=== PATIENT | female | born 2000 ===

== ENCOUNTER 2021-09-30 19:54 | Emergency (ER) | payer SELFPAY ==
[2021-09-30] MEDS ORDERED: diphenhydrAMINE 50 MG/ML VIAL IV ONE (20:58)
[2021-09-30] MEDS ORDERED: METOCLOPRAMIDE 10 MG/2 ML INJ IV ONE (20:58)
[2021-09-30] MEDS ORDERED: SODIUM CHLORIDE 0.9% 1000 ML 1,000 ML IV ONE ×2 (21:00→22:45)
[2021-09-30 21:40] LABS: Alanine Aminotransferase 6 units/L (7-56); Albumin 3.9 g/dL (3.9-5); Blood Urea Nitrogen 12 mg/dL (7-17); Calcium 8.4 mg/dL (8.4-10.2); Hemolysis Index 45
[2021-09-30 21:41] LABS: BUN/Creatinine Ratio 24; Basophils % (Auto) 0.1 % (0.0-1.8); Eosinophils % (Auto) 0.2 % (0.0-4.3); Hematocrit 34.7 % (30.3-42.9); Hemoglobin 11.2 gm/dl (10.1-14.3); Lymphocytes # (Auto) 1.8 K/mm3 (1.2-5.4); Lymphocytes % (Auto) 22.6 % (13.4-35.0); Mean Corpuscular HGB Conc 32 % (30-34); Mean Corpuscular Volume 84 fl (79-97); Monocytes # (Auto) 0.4 K/mm3 (0.0-0.8); Monocytes % (Auto) 5.2 % (0.0-7.3); Platelet Count 199 K/mm3 (140-440); Red Blood Count 4.15 M/mm3 (3.65-5.03); Red Cell Distribution Width 13.5 % (13.2-15.2)
[2021-09-30] MEDS ORDERED: ACETAMINOPHEN 500 MG TAB PO ONE (22:45)
--- NOTE | 2021-09-30 22:52 | Emergency Department Report ---
ED General Adult HPI - General Chief complaint: Abdominal Pain Stated complaint: ABD PAIN PUI?: Yes Time Seen by Provider: 09/30/21 22:25 Source: patient, RN notes reviewed, old records reviewed Mode of arrival: Ambulatory Limitations: Language Barrier - History of Present Illness Initial comments: The patient was evaluated in the emergency department for symptoms described in the history of present illness. He/she was evaluated in the context of the global COVID-19 pandemic, which necessitated consideration that the patient might be at risk for infection with the virus that causes COVID-19. Institutional protocols and algorithms that pertain to the evaluation of patients at risk for COVID-19 are in a state of rapid change based on information released by regulatory bodies including the CDC and federal and state organizations. These policies and algorithms were followed during the patient's care in the emergency department. Please note that these policies, procedures and recommendations changed on a rapid basis. 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 The patient is referred to the emergency room from a local outpatient family practice office. History obtained from patient, using appropriate account executive on account executive phone, as well as her friend. The patient was found to be today, with a fundal height of 22 cm, and has also been taking contraceptives which belonged to her friend. She is not trying to get but she is having unprotected sex. She has a mild headache, no neck pain, no chest pain, bilateral lower quadrant abdominal pain for 1 month, denies dysuria. Prehospital documentation indicates that the patient has a urinalysis with leukocytosis of blood. The patient denies sore throat and loss of taste or smell. In the past few days, patient has had 1 positive COVID test (this past Monday), and a subsequent negative test the day after. The patient denies exacerbating or relieving factors. The patient does not currently have a local MEASURING CLERK -: Gradual, week(s) Location: abdomen Radiation: non-radiation Consistency: intermittent Improves with: none Worsens with: none - Related Data Previous Rx's Medication Instructions Recorded Last Taken Type Acetaminophen [Non-Aspirin Extra 500 mg PO Q6HR PRN #30 tablet 10/01/21 Unknown Rx Strength] Doxylamine Succinate/Vit B6 1 each PO QHS PRN #30 tablet. 10/01/21 Unknown Rx [Lisa Escalante 10-10 mg Tablet] Shana Root [Shana] 250 mg PO QID PRN #30 capsule 10/01/21 Unknown Rx Vit-Fe Fumar-FA [ 1 tab PO QDAY #30 tablet 10/01/21 Unknown Rx Vitamin] Allergies Allergy/AdvReac Type Severity Reaction Status Date / Time No Known Allergies Allergy Verified 09/30/21 20:51 ED Review of Systems ROS: Stated complaint: ABD PAIN Other details as noted in HPI Constitutional: denies: chills, fever ENT: denies: throat pain Respiratory: denies: cough Cardiovascular: denies: chest pain Gastrointestinal: abdominal pain. denies: nausea, vomiting Genitourinary: denies: dysuria Musculoskeletal: denies: back pain Neurological: headache. denies: weakness Psychiatric: anxiety ED Past Medical Hx - Past Medical History Previous Medical History?: No - Surgical History Past Surgical History?: No Additional Surgical History: C SECTION - Medications Home Medications: Home Medications Medication Instructions Recorded Confirmed Last Taken Type Acetaminophen [Non-Aspirin Extra 500 mg PO Q6HR PRN #30 tablet 10/01/21 Unknown Rx Strength] Doxylamine Succinate/Vit B6 1 each PO QHS PRN #30 tablet. 10/01/21 Unknown Rx [Lisa Escalante 10-10 mg Tablet] Shana Root [Shana] 250 mg PO QID PRN #30 capsule 10/01/21 Unknown Rx Vit-Fe Fumar-FA [ 1 tab PO QDAY #30 tablet 10/01/21 Unknown Rx Vitamin] ED Physical Exam - General Limitations: Language Barrier General appearance: alert, anxious - Head Head exam: Present: atraumatic, normocephalic - Eye Eye exam: Present: normal appearance, EOMI. Absent: nystagmus - ENT ENT exam: Present: normal exam, normal orophraynx, mucous membranes moist, normal external ear exam - Neck Neck exam: Present: normal inspection, full ROM. Absent: tenderness, meningismus - Respiratory Respiratory exam: Present: normal lung sounds bilaterally. Absent: respiratory distress, wheezes, rales, rhonchi, stridor, decreased breath sounds - Cardiovascular Cardiovascular Exam: Present: normal rhythm, tachycardia, normal heart sounds. Absent: bradycardia, irregular rhythm, systolic murmur, diastolic murmur, rubs, gallop - GI/Abdominal GI/Abdominal exam: Present: soft, tenderness (There is minimal right upper quadrant/superior umbilical tenderness. There is no right lower quadrant tenderness, rebound or guarding. There is negative Denney sign. There is a negative Rovsing sign), normal bowel sounds. Absent: distended, guarding, rebound, rigid, pulsatile mass - Extremities Exam Extremities exam: Present: normal inspection, full ROM, other (2+ pulses noted in the bilateral upper and lower extremities. There is no palpable cord. negative Homans sign. Muscular compartments are soft. The pelvis is stable.). Absent: calf tenderness - Back Exam Back exam: Present: normal inspection, full ROM. Absent: tenderness, CVA tenderness (R), paraspinal tenderness, vertebral tenderness - Neurological Exam Neurological exam: Present: alert, other (No facial droop. Tongue midline. Extraocular movements intact bilaterally. Facial sensation intact to light touch in V1, V2, V3 distribution bilaterally. 5 and a 5 strength in 4 extremities. Sensation intact to light touch in 4 extremities.) - Psychiatric Psychiatric exam: Present: anxious - Skin Skin exam: Present: warm, dry, intact, normal color. Absent: rash ED Course Vital Signs 09/30/21 10/01/21 20:47 01:12 Temperature 100.6 F H 97.7 F Pulse Rate 124 H 108 H Respiratory 22 20 Rate Blood Pressure 89/55 93/54 O2 Sat by Pulse 100 100 Oximetry - Reevaluation(s) Reevaluation #1: 09/30/21 22:53 Differential diagnosis, including but not limited to: Cholecystitis, pyeloneph ritis, insufficient care, urinary tract infection, COVID-19 Assessment and plan: 21-year-old female, who is not vaccinated against COVID-19, who had 1 positive test in the past week, 1 negative test in the past week, denies urinary symptoms, referred to the emergency room from an outpatient family Practice, found to be , in spite of taking oral contraceptives. Place patient on isolation. Start fluids and Tylenol. Have requested urine sample. Obtain appropriate ultrasounds. Reassess after initial data points. Saturating 100% on room air. Lung sounds are clear. I think pneumonia is unlikely 10/01/21 00:11 Patient resting comfortably. No active vomiting. Initial urinalysis is contaminated. Went back to patient and discussed need to obtain clean-catch urine sample. Discussed technique necessary to obtain clean-catch urine sample. Awaiting repeat urinalysis and diagnostic radiology. 10/01/21 01:51 Repeat clean-catch urinalysis is not consistent with infectious pathology. There may be a component of dehydration. The patient continues to rest comfortably in chat with her friend in in a relaxed manner. Tachycardia improving, patient has defervesced, patient approximately 20 weeks , therefore, tachycardia likely secondary to physiology of , as well as dehydration. Ultrasound essentially nonactionable for acute or emergent findings. This patient has been observed in this ER for hours without clinical decompensation. She will need to follow-up as soon as possible with an outpatient materials supervisor to initiate outpatient care. 10/01/21 02:36 Final reevaluation. Patient in no acute distress. Ultrasound findings reviewed and appreciated. No active vomiting. Extensively and thoroughly discussed significance of findings, and need to follow-up as an outpatient. Patient articulates understanding. All questions answered. ED Medical Decision Making - Lab Data Result diagrams: 09/30/21 21:06 09/30/21 21:06 Vital Signs 09/30/21 20:47 Temperature 100.6 F H Pulse Rate 124 H Respiratory 22 Rate Blood Pressure 89/55 O2 Sat by Pulse 100 Oximetry Lab Results 09/30/21 09/30/21 09/30/21 Range/Units 21:06 21:06 21:06 WBC 8.1 (4.5-11.0) K/mm3 RBC 4.15 (3.65-5.03) M/mm3 Hgb 11.2 (10.1-14.3) gm/dl Hct 34.7 (30.3-42.9) % MCV 84 (79-97) fl MCH 27 L (28-32) pg MCHC 32 (30-34) % RDW 13.5 (13.2-15.2) % Plt Count 199 (140-440) K/mm3 Lymph % (Auto) 22.6 (13.4-35.0) % [place] % (Auto) 5.2 (0.0-7.3) % Eos % (Auto) 0.2 (0.0-4.3) % Baso % (Auto) 0.1 (0.0-1.8) % Lymph # (Auto) 1.8 (1.2-5.4) K/mm3 [place] # (Auto) 0.4 (0.0-0.8) K/mm3 Eos # (Auto) 0.0 (0.0-0.4) K/mm3 Baso # (Auto) 0.0 (0.0-0.1) K/mm3 Seg Neutrophils % 71.9 H (40.0-70.0) % Seg Neutrophils # 5.8 (1.8-7.7) K/mm3 Sodium 138 (137-145) mmol/L Potassium 3.7 (3.6-5.0) mmol/L Chloride 104.0 (98-107) mmol/L Carbon Dioxide 19 L (22-30) mmol/L Anion Gap 19 mmol/L BUN 12 (7-17) mg/dL Creatinine 0.5 L (0.6-1.2) mg/dL Estimated GFR > 60 ml/min BUN/Creatinine Ratio 24 % Glucose 91 (65-100) mg/dL Calcium 8.4 (8.4-10.2) mg/dL Total Bilirubin 0.30 (0.1-1.2) mg/dL AST 15 (5-40) units/L ALT 6 L (7-56) units/L Alkaline Phosphatase 84 (35-129) units/L Total Protein 7.2 (6.3-8.2) g/dL Albumin 3.9 (3.9-5) g/dL Albumin/Globulin Ratio 1.2 % HCG, Quant 9841 H (0-4) mIU/mL Blood Type 09/30/21 Range/Units 21:06 WBC (4.5-11.0) K/mm3 RBC (3.65-5.03) M/mm3 Hgb (10.1-14.3) gm/dl Hct (30.3-42.9) % MCV (79-97) fl MCH (28-32) pg MCHC (30-34) % RDW (13.2-15.2) % Plt Count (140-440) K/mm3 Lymph % (Auto) (13.4-35.0) % [place] % (Auto) (0.0-7.3) % Eos % (Auto) (0.0-4.3) % Baso % (Auto) (0.0-1.8) % Lymph # (Auto) (1.2-5.4) K/mm3 [place] # (Auto) (0.0-0.8) K/mm3 Eos # (Auto) (0.0-0.4) K/mm3 Baso # (Auto) (0.0-0.1) K/mm3 Seg Neutrophils % (40.0-70.0) % Seg Neutrophils # (1.8-7.7) K/mm3 Sodium (137-145) mmol/L Potassium (3.6-5.0) mmol/L Chloride (98-107) mmol/L Carbon Dioxide (22-30) mmol/L Anion Gap mmol/L BUN (7-17) mg/dL Creatinine (0.6-1.2) mg/dL Estimated GFR ml/min BUN/Creatinine Ratio % Glucose (65-100) mg/dL Calcium (8.4-10.2) mg/dL Total Bilirubin (0.1-1.2) mg/dL AST (5-40) units/L ALT (7-56) units/L Alkaline Phosphatase (35-129) units/L Total Protein (6.3-8.2) g/dL Albumin (3.9-5) g/dL Albumin/Globulin Ratio % HCG, Quant (0-4) mIU/mL Blood Type O POSITIVE - Radiology Data Radiology results: report reviewed, image reviewed . LIMITED RUQ ABDOMINAL ULTRASOUND INDICATION: ruq pain, right flank pain. COMPARISON: No relevant prior imaging study available. FINDINGS: Pancreas: Visualized portions show no significant abnormality. Abdominal Aorta: Normal size. IVC: No significant abnormality. Liver: The liver measures 15.7 cm in length. No significant abnormality. Normal hepatopedal blood flow in the main portal vein. Gallbladder: No significant abnormality. Bile ducts: No significant abnormality. Common bile duct measures 5 mm. Right kidney: No significant abnormality visualized.. Free fluid: None. Additional Findings: None. IMPRESSION: 1. Normal exam. Signer Name: Willian Mchugh MD Signed: 10/01/2021 1:22 AM Workstation Name: [id number] OB Ultrasound HISTORY: abd pos preg. TECHNIQUE: Grayscale and color imaging performed. COMPARISON: None FINDINGS: There is a single viable intrauterine gestation with cephalic presentation. Placenta is seen along the right lateral wall. Cervical length is 2.5 cm. Overall EGA by ultrasound is 20 weeks and 4 days with an enhancement delivery date of 02/14/2022, compared to clinical gestational age of 7 weeks and 5 days. Estimated weight is 364 g. RADHA is 4 cm. Heart rate is 158 bpm. IMPRESSION: Single viable intrauterine gestation as above. Please note that there is a significant discrepancy between the clinical and ultrasound gestational ages. No acute abnormality identified. Signer Name: Willian Mchugh MD Signed: 10/01/2021 1:24 AM Workstation Name: [id number] Critical care attestation.: If time is entered above; I have spent that time in minutes in the direct care of this critically ill patient, excluding procedure time. ED Disposition Clinical Impression: Acute febrile illness, COVID-19 vaccination not done, Right sided abdominal pain Insufficient care Qualifiers: Trimester: unspecified trimester Qualified Code(s): O09.30 - Supervision of with insufficient care, unspecified trimester Qualifiers: Weeks of gestation: 20 weeks Qualified Code(s): Z3A.20 - 20 weeks gestation of Disposition: 01 HOME / SELF CARE / HOMELESS Is pt being admited?: No Does the pt Need Aspirin: No Condition: Good Instructions: and Vaccinations, Second Trimester of , [id number], Abdominal Pain (ED) Additional Instructions: Laboratory studies today suggested mild dehydration, but no infected urine. Ultrasound today demonstrated unremarkable gallbladder, liver, and right-sided kidney. ultrasound today demonstrated that the patient is approximately 20 weeks. Please take the prescribed pain medication, nausea medication, and vitamins as needed and directed. Recommend that patient follow-up as soon as possible with an outpatient materials supervisor to initiate and establish care. Failing to do so may result in complications, which could result in , disability, paralysis, loss of quality of life to the mother, and defects to the fetus. In addition, insufficient care is a risk factor for unforeseen complications, up to and including defects as well as demise. We do recommend that the patient have outpatient COVID-19 testing. We also recommend that the patient complete her COVID-19 vaccination series when cleared to do so by her primary care doctor or materials supervisor. The patient should not take any form of control tablets or oral contraceptives. For the patient's convenience, local MEASURING CLERK physicians have been listed that she may follow-up with. please return to the emergency room right away with new pain, worsened pain, migration of pain, projectile vomiting, change in mental status, confusion, inability tolerate liquid feeds, new, worsened or different symptoms not present on the initial emergency room evaluation Los estudios de laboratorio de lenora sugirieron deshidratacin leve, natalia no orina infectada. La ecografa de lenora demostr vescula biliar, hgado y rin del lado derecho sin complicaciones. La ecografa de embarazo de lenora demostr que la paciente est embarazada de aproximadamente 20 semanas. Rote los medicamentos recetados para el dolor, los medicamentos para las nuseas y las vitaminas prenatales segn sea necesario y segn las indicaciones. Recomendar el seguimiento de la paciente lo antes posible con un gineclogo obstetra ambulatorio para iniciar y establecer la atencin . El no hacerlo puede resultar en complicaciones en el embarazo, lo que podra resultar en muerte, discapacidad, parlisis, prdida de la calidad de shaji de la madre y defectos de nacimiento en el feto. Adems, la atencin insuficiente es un factor de riesgo de complicaciones imprevistas, que pueden incluir defectos de nacimiento y muerte . Recomendamos que el paciente se aisha katerin prueba ambulatoria de COVID-19. Dorian recomendamos que la paciente complete madden serie de vacunas contra el COVID-19 cuando madden mdico de atencin primaria o madden gineclogo obstetra lo autoricen. El paciente no debe simran ningn tipo de tabletas anticonceptivas o anticonceptivos orales. Para comodidad de la paciente, se hooper incluido en la lista mdicos obstetras/gineclogos locales con los que puede hacer un seguimiento. M por favor regrese a la jeremy de emergencias de inmediato con dolor nuevo, empeoramiento del dolor, migracin del dolor, vmitos proyectiles, cambio en el estado mental, confusin, incapacidad para tolerar alimentos lquidos, sntomas nuevos, empeorados o diferentes que no estaban presentes en la evaluacin inicial de la jeremy de emergencias Prescriptions: Doxylamine Succinate/Vit B6 [Lisa Escalante 10-10 mg Tablet] 1 each PO QHS PRN #30 tablet. PRN Reason: Nausea Shana Root [Shana] 250 mg PO QID PRN #30 capsule PRN Reason: Nausea Acetaminophen [Non-Aspirin Extra Strength] 500 mg PO Q6HR PRN #30 tablet PRN Reason: Pain , Severe (7-10) Vit-Fe Fumar-FA [ Vitamin] 1 tab PO QDAY #30 tablet Referrals: [facility] [Provider Group] - 3-5 Days [facility] [Provider Group] - 3-5 Days [facility] [Provider Group] - 3-5 Days Print Language: KINYARWANDA
[2021-09-30 23:50] LABS: Bilirubin,Urine NEG (Negative); Blood,Urine SM (Negative); Color,Urine Yellow (Yellow); Mucus,Urine 3+ /HPF; Urobilinogen,Urine < 2.0 mg/dL (<2.0)
[2021-10-01 01:45] LABS: Bilirubin,Urine NEG (Negative); Blood,Urine NEG (Negative); Color,Urine Yellow (Yellow); Mucus,Urine 2+ /HPF; Urobilinogen,Urine < 2.0 mg/dL (<2.0)
[2021-10-01] MEDS ORDERED: SODIUM CHLORIDE 0.9% 1000 ML 1,000 ML IV ONE (01:54)
[2021-10-01] MEDS ORDERED: ACETAMINOPHEN 325 MG TAB PO ONE (01:54)
--- NOTE | 2021-10-01 02:26 | Ultrasound Report ---
. LIMITED RUQ ABDOMINAL ULTRASOUND INDICATION: ruq pain, right flank pain. COMPARISON: No relevant prior imaging study available. FINDINGS: Pancreas: Visualized portions show no significant abnormality. Abdominal Aorta: Normal size. IVC: No significant abnormality. Liver: The liver measures 15.7 cm in length. No significant abnormality. Normal hepatopedal blood fl ow in the main portal vein. Gallbladder: No significant abnormality. Bile ducts: No significant abnormality. Common bile duct measures 5 mm. Right kidney: No significant abnormality visualized.. Free fluid: None. Additional Findings: None. IMPRESSION: 1. Normal exam. Signer Name: Willian Mchugh MD Signed: 10/01/2021 2:22 AM Workstation Name: [id number]
--- NOTE | 2021-10-01 02:28 | Ultrasound Report ---
OB Ultrasound HISTORY: abd pos preg. TECHNIQUE: Grayscale and color imaging performed. COMPARISON: None FINDINGS: There is a single viable intrauterine gestation with cephalic presentation. Placenta is see n along the right lateral wall. Cervical length is 2.5 cm. Overall EGA by ultrasound is 20 weeks and 4 days with an enhancement delivery date of 02/14/2022, comp ared to clinical gestational age of 7 weeks and 5 days. Estimated weight is 364 g. RADHA is 4 cm. Heart rate is 158 bpm. IMPRESSION: Single viable intrauterine gestation as above. Please note that there is a significant d iscrepancy between the clinical and ultrasound gestational ages. No acute abnormality identified. Signer Name: Willian Mchugh MD Signed: 10/01/2021 2:24 AM Workstation Name: [id number]
[2021-10-01 03:24] VITALS: BP 102/70
== END 2021-10-01 03:27 | disposition home or self-care (01) ==
LOC: ED 19:54
DX: O09.32 Supervision of pregnancy with insufficient antenatal care, second trimester (principal); O26.892 Other specified pregnancy related conditions, second trimester; R51.9 Headache, unspecified; Z3A.20 20 weeks gestation of pregnancy; Z79.899 Other long term (current) drug therapy
CPT/HCPCS: 36415; 76705; 76805; 80053; 81001; 84702; 85025; 86900; 86901; 87086; 96361; 96374; 96375; 99284; J1200; J2765; J7030; Q0162